=== PATIENT | female | born 1985 | race Two or more races ===

== ENCOUNTER 2019-09-09 11:28 | Emergency (ER) | payer OTHER ==
[~2019-09-09] VITALS: Ht 157.5 cm; Wt 81.2 kg
[2019-09-09] MEDS ORDERED: PROTONIX PO (11:59)
[2019-09-09] MEDS ORDERED: ZOFRAN8 MG (11:59)
[2019-09-09] MEDS ORDERED: PROMETRIUM200 MG PO (11:59)
[2019-09-09] MEDS ORDERED: PRENA1 TRUE CO1 EACH PO (12:00)
[2019-09-09] MEDS ORDERED: MACRODANTIN100 M1 PO (15:05)
== END 2019-09-09 15:39 | disposition home or self-care (01) ==
LOC: ER 11:28 → EDBD 12:48 → ER 15:39
DX: O46.8X2 Other antepartum hemorrhage, second trimester (principal)

== ENCOUNTER → 2019-10-12 | Outpatient (CLI) | payer OTHER ==
[~2019-10-12] MED LIST: MACRODANTIN100 M1 PO; PRENA1 TRUE CO1 EACH PO; PROMETRIUM200 MG PO; PROTONIX PO; ZOFRAN8 MG
== END | disposition home or self-care (01) ==
LOC: EDBD 10:52 → PRENATAL 10:52
PROVIDERS: ATTEND Obstetrics & Gynecology Maternal & Fetal Medicine
DX: O35.3XX1 Maternal care for (suspected) damage to fetus from viral disease in mother, fetus 1 (principal); O98.512 Other viral diseases complicating pregnancy, second trimester; O44.02 Complete placenta previa NOS or without hemorrhage, second trimester; O09.522 Supervision of elderly multigravida, second trimester; Z36.89 Encounter for other specified antenatal screening

== ENCOUNTER 2019-10-13 04:12 | Emergency (ER) | payer OTHER ==
[~2019-10-13] VITALS: Ht 157.5 cm; Wt 88.5 kg
== END 2019-10-13 07:58 | disposition home or self-care (01) ==
LOC: ER 04:12 → EDBD 04:14 → ER 04:14
DX: K59.09 Other constipation (principal)

== ENCOUNTER → 2019-12-08 | Outpatient (CLI) | payer OTHER | END | disposition home or self-care (01) | LOC: PRENATAL 08:42 → EDBD 12-14 10:00 → PRENATAL 12-14 10:00 | PROVIDERS: ATTEND Obstetrics & Gynecology Maternal & Fetal Medicine | DX: O26.843 Uterine size-date discrepancy, third trimester (principal); O34.211 Maternal care for low transverse scar from previous cesarean delivery; O44.03 Complete placenta previa NOS or without hemorrhage, third trimester; O09.523 Supervision of elderly multigravida, third trimester; Z36.89 Encounter for other specified antenatal screening; Z3A.28 28 weeks gestation of pregnancy ==

== ENCOUNTER 2020-02-28 08:44 | Inpatient (IN) | payer OTHER ==
[~2020-02-28] VITALS: Ht 157.5 cm; Wt 3.6 kg
[2020-02-29] MEDS ORDERED: COLACE100 MG PO (11:25)
[2020-03-02] MEDS ORDERED: PROTONIX40 MG (10:09)
[2020-03-03] MEDS ORDERED: RHOGAM ULTR1500 UNIT IM (08:43)
[2020-03-05] MEDS ORDERED: PERCOCET 5-3251 EACH PO (08:31)
== END 2020-03-05 12:50 | disposition home or self-care (01) | DRG 788 ==
LOC: LDR 02-29 08:15 → O/R 03-02 06:30 → OB/GYN 03-02 06:30
PROVIDERS: ADMIT Specialist; ATTEND Specialist
PROC: 4A1HXFZ Monitoring of Products of Conception, Cardiac Rhythm, External Approach (ICD-10-PCS; 2020-03-02)
PROC: 10D00Z1 Extraction of Products of Conception, Low, Open Approach (ICD-10-PCS; principal; 2020-03-02 07:00)
DX: O34.211 Maternal care for low transverse scar from previous cesarean delivery (principal); Z3A.39 39 weeks gestation of pregnancy; Z37.0 Single live birth

== ENCOUNTER 2023-11-13 10:48 | Outpatient (CLI) | payer OTHER ==
[~2023-11-13 10:48] MED LIST changes: +COLACE100 MG PO; +PERCOCET 5-3251 EACH PO; +PROTONIX40 MG; +RHOGAM ULTR1500 UNIT IM
== END 2023-11-13 11:05 | disposition home or self-care (01) ==
LOC: SONOGRAMA 10:48
PROVIDERS: ATTEND Specialist
DX: N92.1 Excessive and frequent menstruation with irregular cycle (principal)